=== PATIENT | male | born 1975 | race Caucasian/White ===

== ENCOUNTER 2023-09-13 06:23 | Day surgery (SDC) | payer OTHER, MEDICAID, SELFPAY ==
[2023-09-11 13:57] VITALS: BMI 45.0
[2023-09-13 06:49] VITALS: BP 132/80; PULSE 95; RESP 18; TEMP 36.1; O2SAT 94
[2023-09-13] MEDS: LACTATED RINGERS 1000ML 1,000 ML 25 ML IV (06:56)
--- NOTE | 2023-09-13 07:05 | P.PNANES_ITS ---
[facility] Disclaimer: The information contained in this section may have been updated after the patient was seen, as this information can be updated by other users. Medical History Kidney stone Migraine Hyperlipidemia Hypertension Sleep apnea Surgical History No significant past surgical history Family History Other Family history of cancer Family history of diabetes mellitus type II Family history of hypertension Family history of myocardial infarction Social History Smoking Status: Current every day smoker alcohol intake: never substance use type: denies use current occupational status: employed Travel in the last 8 weeks: Inside the [place] caffeine: Yes [facility] Anesthesia Checklist Patient Identification Patient Identification: Arm Band and Verbal (Name & ) Structural Data Admitted From: Home Planned Operative Procedure/s: Colonoscopy Consent for Planned Operative Procedure(s) Verified: Yes NPO Status Verified Time NPO: 00:00 Additional verifications Anesthesia Reactions: No Airway Assessment Mallampati Score:: Class III C-Spine Mobility Assessed: Yes TMJ Mobility Assessed: Yes Dentition: Good Dentition Neurological Assessment Level of Consciousness: Awake Hx Seizures: No Numbness or tingling in extremities: No Anesthesia Plan Anesthesia Risk discussed: Yes Anesthesia Plan: Verified ASA Class: III Anesthesia Type: MAC
[2023-09-13 07:22] VITALS: O2SAT 94
[2023-09-13 07:59] VITALS: BP 123/74; PULSE 89; RESP 16; TEMP 36.4; O2SAT 99
--- NOTE | 2023-09-13 08:06 | HMH.SCOPE ---
Procedure: Date: 09/13/23 Patient Date of :: 1975 Procedure Performed:: Colonoscopy with polypectomy Indications:: Hemorrhoids Screening Performing Provider:: Diogenes Sutherland MD Referring Provider:: . Sedation:: Monitored anesthesia care Procedure:: After informed consent was obtained the patient was taken to the endoscopy suite. Sedation ensued after the patient was transferred to the left lateral decubitus position. Pulse, blood pressure, and oxygen saturation were monitored throughout the procedure. Digital rectal exam revealed no significant abnormality. The colonoscope was placed in position. The entire colon was evaluated. The colonoscope was carefully removed and the patient was transferred to recovery in stable condition. Please see findings and specimens below for detail. Findings:: Bowel preparation moderate Fairly significant lack of relaxation/spasticity Posterior fissure Hemorrhoidal cushions/tags with dominant anterior tag Pedunculated polyp at 55 cm Specimens:: Pedunculated polyp at 55 cm (hot snare) Recommendations:: Timing of repeat colonoscopy is pending pathology will likely be around 2-3 years secondary to size/nature of polyp, moderate bowel preparation, and lack of relaxation/spasticity. Treatment with regard to hemorrhoids/fissure ongoing Complications:: No immediate Estimated blood obtained (mL): 1 Colonoscopy Component Colonoscopy Component Was a colonoscopy performed during today's procedure?: Yes Recommended follow up colonoscopy of at least 10 years?: No If no, follow up colonoscopy recommended in ___ years?: (See above) Reason for not recommending >/= 10 yr follow-up interval?: (See above)
[2023-09-13 08:09] VITALS: BP 107/55; PULSE 88; RESP 14; O2SAT 99
[2023-09-13 08:19] VITALS: BP 119/74; PULSE 100; RESP 16; O2SAT 93
[2023-09-13 08:29] VITALS: BP 126/66; PULSE 95; RESP 16; O2SAT 95
[2023-09-13 12:31] LABS: POC Glucose,Bedside 183 (70-110)
== END 2023-09-13 08:39 | disposition home or self-care (01) ==
PROVIDERS: PCP Physician Assistant; Visit Provider Surgery
PROC: 0DJD8ZZ Inspection of Lower Intestinal Tract, Via Natural or Artificial Opening Endoscopic (ICD-10-PCS; CPT 45385; principal; 2023-09-13 07:30)
DX: K64.8 Other hemorrhoids (principal); K60.2 Anal fissure, unspecified; D12.5 Benign neoplasm of sigmoid colon; Z79.899 Other long term (current) drug therapy
CPT/HCPCS: 45385; 82962

== ENCOUNTER 2023-10-20 10:05 | Outpatient (CLI) | payer OTHER, MEDICAID, SELFPAY ==
--- NOTE | 2023-10-20 10:14 | ECG_ITS ---
APPROVED REPORT Exam: Resting ECG HR:84 bpm ECG Measurements Heart Rate [address] 130 P 34 QRSd 165 QRS 178 QT 392 T 24 QTc 432 Conclusion SINUS RHYTHM RIGHT BUNDLE BRANCH BLOCK [120+ ms QRS DURATION, UPRIGHT V1, 40+ ms S IN I/aVL/V4/V5/V6] LEFT POSTERIOR FASCICULAR BLOCK [QRS AXIS > 109, INFERIOR Q] ABNORMAL ECG UNCONFIRMED REPORT Electronically signed by : Brendan Dunn MD 10/22/2023 07:37:54
[2023-10-20 11:03] LABS: Basophils # 0.1 K/mm3 (0-0.2); Basophils % 0.7 % (0.1-2.0); Eosinophils # 0.1 K/mm3 (0.0-0.4); Eosinophils % 1.2 % (0.1-12.0); Hematocrit 46.9 % (42.0-52.0); Hemoglobin 15.5 g/dL (14.1-18.0); Lymphocytes # 2.1 K/mm3 (0.7-4.5); Lymphocytes % 24.9 % (10-50); Mean Corpuscular Hemoglobin 32.8 pg (27.0-31.2); Mean Corpuscular Volume 99.3 fl (80-94); Mean Platelet Volume 8.1 fl (7.4-10.4); Monocytes # 0.3 K/mm3 (0.1-1.0); Monocytes % 3.6 % (1.7-9.3); Neutrophils # 5.8 K/mm3 (1.8-7.8); Neutrophils % 69.6 % (37.0-80.0); Platelet Count 228 K/mm3 (142-424); Red Blood Count 4.73 M/mm3 (4.60-6.20); Red Cell Distribution Width 13.2 % (11.5-17.5); White Blood Count 8.3 K/mm3 (4.8-10.8)
[2023-10-20 11:27] LABS: Anion Gap 16.3 mEq/L (5-15); Blood Urea Nitrogen 17 mg/dl (9-20); Calcium 9.7 mg/dl (8.4-10.2); Carbon Dioxide 25 mmol/L (22.0-30.0); Chloride 102 mmol/L (98-107); Estimated Glomerular Filt Rate 79 ml/min (>60); GFR (African American) 96 ML/MIN (>60); Glucose 289 mg/dl (74-100); Potassium 4.3 mmoL/L (3.5-5.1); Sodium 139 mmol/L (136-145)
== END 2023-10-20 23:59 | disposition home or self-care (01) ==
LOC: LAB 10:06
PROVIDERS: PCP Physician Assistant; Visit Provider Surgery
DX: K60.2 Anal fissure, unspecified (principal); K64.9 Unspecified hemorrhoids
CPT/HCPCS: 36415; 80048; 85025; 93005

== ENCOUNTER 2023-10-26 07:01 | Day surgery (SDC) | payer OTHER, MEDICAID, SELFPAY ==
[2023-10-18 14:24] VITALS: BMI 45.0
[2023-10-26] VITALS (11 sets, daily range): BP systolic 109–154; BP diastolic 78–103; PULSE 78–95; RESP 14–18; TEMP 36.1–43; O2SAT 90–98
[2023-10-26] MEDS: LACTATED RINGERS 1000ML 1,000 ML 25 ML IV (07:30)
[2023-10-26 07:37] LABS: POC Glucose,Bedside 139 (70-110)
--- NOTE | 2023-10-26 07:37 | EXP.ANES.CKL ---
[facility] Disclaimer: The information contained in this section may have been updated after the patient was seen, as this information can be updated by other users. Medical History Anxiety Diabetes Kidney stone Hyperlipidemia Hypertension Sleep apnea Surgical History History of colonoscopy No significant past surgical history Family History Other Family history of cancer Family history of diabetes mellitus type II Family history of hypertension Family history of myocardial infarction Social History Smoking Status: Current every day smoker alcohol intake: never substance use type: denies use current occupational status: employed Travel in the last 8 weeks: None caffeine: Yes [facility] Anesthesia Checklist Patient Identification Patient Identification: Arm Band Structural Data Admitted From: Home Planned Operative Procedure/s: Exam Under Anesthesia, Possible Sphincterotomy, Possible Hemorrhoidectomy Verified Documents: Surgical Consent and History and Physical NPO Status Verified Time NPO: 00:00 Additional verifications Anesthesia Reactions: No Hx Blood Transfusions: No Blood Transfusion Reaction: No Airway Assessment Mallampati Score:: Class III C-Spine Mobility Assessed: Yes TMJ Mobility Assessed: Yes Dentition: Good Dentition Neurological Assessment Level of Consciousness: Awake and Alert Anesthesia Plan Anesthesia Risk discussed: Yes Anesthesia Plan: Verified ASA Class: III Anesthesia Type: General
--- NOTE | 2023-10-26 08:59 | EXP.OP.NOTE ---
Date of procedure: 10/26/23 Pre-op Diagnosis:: Prolapsing internal hemorrhoid Anal fissure Post-op Diagnosis:: Same Procedure performed:: Examination under anesthesia with hemorrhoidectomy Surgeon:: Diogenes Sutherland MD ENTRY LEVEL PARALEGAL:: Hunter Edward Anesthesia: LMA Estimated blood loss (mL): 15 Operative findings:: Posterior anal margin fissure with evidence of (ongoing) healing Complex large prolapsing right lateral internal hemorrhoid Operative note:: After informed consent was obtained the patient was taken to the operating room and placed in the supine position. General anesthesia was induced and he was transferred to a modified lithotomy position. Rectal exam and inspection confirmed posterior anal margin fissure with evidence of ongoing healing. The decision was made to forego fissurectomy and/or partial lateral sphincterotomy. A large complex prolapsing right internal hemorrhoid was noted. Electrocautery was utilized to resect this hemorrhoid. Electrocautery was also utilized to achieve hemostasis. The defect was not closed secondary to surrounding stool burden and concern for infection. Circumferential hemorrhoidal cushions also noted. These hemorrhoids were not resected. Proctosol-coated Gelfoam was placed in the anal canal. The patient's anesthetic agents were reversed and he was transferred in stable condition to recovery. Condition: stable Disposition: PACU Specimens:: Prolapsed right lateral internal hemorrhoid Complications:: No immediate
--- NOTE | 2023-10-26 09:11 | EXP.ANES.I ---
[facility] Anesthesia Record Part I Anesthesia Record I Intake, IV Amount: 1,500 Hydration: Adequate Estimated blood loss (mL): 0 Urine output (mL): 0 Blood Pressure: 154/102 SaO2: 93 Pulse Rate: 78 Airway Patency: Patent Respiratory Rate: 14 Temperature: 97.5 F Patient is:: Awake and Stable Stable to PACU at:: 09:00
[2023-10-26 09:28] LABS: POC Glucose,Bedside 140 (70-110)
[2023-10-26] MEDS: HYDROCODONE/APAP 5/325 MG TABLET 1 TAB PO (10:10)
[2023-10-26] MEDS: CEFAZOLIN SODIUM 2 GM in 0.9 % SODIUM CHLORIDE 100 ML IV (10:20)
[2023-10-26] MEDS: LIDOCAINE 1% 20ML MDV 20 ML (10:20)
[2023-10-26] MEDS: METRONIDAZ/SOD CHL 500 MG/100 ML PIGGYBACK 100 MG IV (10:21)
[2023-10-26] MEDS: HYDROCORTISONE 1% CREAM 30GM TUBE TP (10:21)
--- NOTE | 2023-10-26 12:34 | P.PNANES_ITS ---
[facility] Anesthesia Record Part II Anesthesia Record Part II Discharge Time: 09:30 Destination: Surgical Day Care (OP Surgery) PACU nurse assessment reviewed?: Yes Patient Condition:: Good Anesthesia Complications:: None Swallowing reflex intact?: Yes Airway Patency: Patent Cyanosis?: No Blood Pressure: 133/80 SaO2: 94 Respiratory Rate: 17 Pulse Rate: 83 Temperature: 97.5 F Mental Status: Alert & Oriented Pain level:: 0 Nausea and/or vomitting:: None Intake, IV Amount: 0 Hydration: Adequate
== END 2023-10-26 10:12 | disposition home or self-care (01) ==
PROVIDERS: PCP Physician Assistant; Visit Provider Surgery
PROC: (CPT 46255; principal; 2023-10-26 08:30)
DX: K64.8 Other hemorrhoids (principal); K60.2 Anal fissure, unspecified; E11.9 Type 2 diabetes mellitus without complications
CPT/HCPCS: 46255; 82962; 96374